=== PATIENT | female | born 1995 | race Asian ===

== ENCOUNTER 2022-08-28 11:43 | Emergency (ER) | payer OTHER, SELFPAY ==
[2022-08-28 11:45] VITALS: BP 103/66; PULSE 82; RESP 16; TEMP 36.8; O2SAT 100; BMI 23.3
--- NOTE | 2022-08-28 12:18 | RAD_ITS ---
STUDY: X-RAY - LUMBAR SPINE REASON FOR EXAM: Female, 27 years old. Low back TECHNIQUE: 2 view(s) of the lumbar spine were obtained. COMPARISON: None FINDINGS: Normal lumbar lordosis. There is no substantial scoliosis. There is a normal alignment of the vertebrae. Normal vertebral bodies and endplates. Normal disc space heights. The soft tissue structures are unremarkable. RAD/Lumbar Spine 2 or 3 Views IMPRESSION: Normal x-ray examination of the lumbar spine. Electronically Signed: Pola Stephens MD at 13:15 EST ,
--- NOTE | 2022-08-28 12:19 | EDS_ITS ---
HPI History of Present Illness Chief Complaint: Back Narrative Narrative: 27-year-old healthy female with no significant past medical history presenting with back pain. 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 She states she is able to ambulate however slowly. She has difficulty with bending and twisting. No direct trauma to the back. No history of back problems. No saddle anesthesia or paresthesia. No urinary retention. Patient took nothing for pain prior to arrival. She states she could not get up to get anything. PFSH PFSH Home Medications naproxen 500 mg tablet (Naprosyn) 500 mg PO BID PRN pain #20 tabs 08/28/22 [Rx Last Taken Unknown] tizanidine 4 mg capsule (Zanaflex) 4 mg PO TID PRN muscle spasticity #12 caps 08/28/22 [Rx Last Taken Unknown] Allergy/AdvReac Type Severity Reaction Status Date / Time No Known Allergies Allergy Verified 08/28/22 11:47 Social History Smoking Status: Never smoker ROS ROS ED Constitutional Constitutional ED: Denies chills, fever(s) or sweats Eyes Eyes: Denies blurry vision or change in vision ENT ENT ED: Denies ear pain or sore throat Cardiovascular Cardiovascular: Denies chest pain, palpitations or racing heartbeat Respiratory/Chest Respiratory/Chest: Denies cough, dyspnea or sputum Gastrointestinal Gastrointestinal: Denies abdominal pain, constipation, diarrhea, nausea or vomiting Genitourinary Genitourinary ED: Denies dysuria, hematuria or urinary frequency Musculoskeletal Musculoskeletal: Reports back pain; Denies arthralgias, myalgias or neck pain Integumentary Denies abscess, Abrasions or rash Neurologic Neurologic: Denies headache(s), paresthesias or weakness Psychiatric Psychiatric: Denies anxiety, depression, suicidal ideation or suicidal thoughts Endocrine Endocrinology: Denies polydipsia or polyuria EXAM Physical Exam Const Vital Signs: 08/28/22 11:45 Temperature 98.2 F Temperature Source Temporal Pulse Rate 82 Respiratory Rate 16 Blood Pressure 103/66 Blood Pressure Mean 78 Pulse Ox 100 Oxygen Delivery Method Room Air Positive well nourished General Appearance ED: NAD HEENT Reports moist mucous membranes Eyes PERRL and EOMs intact bilaterally General Eye ED: Negative for pale conjunctiva or scleral icterus Resp normal respiratory effort and clear to auscultation bilaterally Auscultation: Negative for rales, rhonchi or wheezes Cardio regular rate and regular rhythm GI normal to inspection, nondistended, normoactive bowel sounds Back/Spine Back/Spine Narrative: No palpable area of tenderness. Pain elicited with twisting and bending. General Back: Negative for CVA tenderness Extremity normal to inspection Neuro oriented x3 and no sensory deficits noted Sensorium / Orientation: alert Motor Exam: strength 5/5 throughout Psych mental status grossly normal MDM MDM MDM Narrative Medical decision making narrative: Patient given Norflex and Toradol. X-rays were obtained of the lumbar spine and these were negative for acute findings on my interpretation. Patient reevaluated at 2 PM and does have some improvement. She is discharged with Naprosyn and Zanaflex. Given follow-up. She is counseled on stretching exercises, alternate ice and heat. I do not believe she needs any other blood work or imaging currently. Impression: 1. Lumbar strain Lab Data Attestation: I reviewed the patient's lab results. Radiography Diagnostic Testing: Clinical Impression(s) from Imaging Studies Lumbar Spine X-Ray 08/28/22 12:18 IMPRESSION: Normal x-ray examination of the lumbar spine. Electronically Signed: Pola Stephens MD at 13:15 EST Reading Location ID and State: [address] [place] [address] , Service support , Discharge Plan Triage Chief Complaint: Back ED Provider: Dipesh Oleary Dx/Rx/DC Orders Instructions: ED Back Spasm, No Trauma Prescriptions: New tizanidine [Zanaflex] 4 mg capsule 4 mg PO TID PRN (Reason: muscle spasticity) Qty: 12 0RF naproxen [Naprosyn] 500 mg tablet 500 mg PO BID PRN (Reason: pain) Qty: 20 0RF Primary Care Provider: Care Physician,No Primary Referrals: Sergio Prakash MD [Med Staff - Commercial Marketing Specialist] - 3-5 Days Care Physician,No Primary [Primary Care Provider] - Disposition Disposition: Home, Self Care
[2022-08-28] MEDS: Ketorolac 15 MG/ML Vial IM (12:33)
[2022-08-28] MEDS: Orphenadrine 60 MG/2 ML Ampul IV (12:33)
== END 2022-08-28 14:19 | disposition home or self-care (01) ==
PROVIDERS: Emergency Provider Student in an Organized Health Care Education/Training Program; Visit Provider Student in an Organized Health Care Education/Training Program
DX: S39.012A Strain of muscle, fascia and tendon of lower back, initial encounter (principal); X50.1XXA Overexertion from prolonged static or awkward postures, initial encounter; Z71.82 Exercise counseling
CPT/HCPCS: 72100; 96372; 96374; 99282